=== PATIENT | female | born 1980 | race Hispanic/Latino ===

== ENCOUNTER → 2018-07-23 | Day surgery (SDC) | payer BC ==
[2018-07-17 12:15] LABS: BASOPHILS # (AUTO) 0.1 (0.0-0.1); BASOPHILS % 0.5 % (0.0-1.0); EOSINOPHILS # (AUTO) 0.3 (0.0-0.4); EOSINOPHILS % 2.2 % (0.0-6.0); HEMATOCRIT 41.3 % (34.2-44.1); HEMOGLOBIN 13.4 g/dL (12.0-16.0); LYMPHOCYTES # (AUTO) 4.1 (1.0-3.2); LYMPHOCYTES % 31.5 % (18.0-39.1); MEAN CORPUSCULAR HEMOGLOBIN 29.8 pg (28-32); MEAN CORPUSCULAR HGB CONC 32.4 g/dL (31-35); MEAN CORPUSCULAR VOLUME 91.8 fL (81-99); MONOCYTES % 7.6 % (4.4-11.3); NEUTROPHILS # (AUTO) 7.5 (2.1-6.9); NEUTROPHILS % 57.8 % (38.7-80.0); PLATELET COUNT 235 x10e3/uL (140-360)
[2018-07-17 12:31] LABS: ANION GAP 13.8 mmol/L (8-16); BLOOD UREA NITROGEN 15 mg/dL (7-26); BUN/CREATININE RATIO 21 (6-25); CALCIUM 9.4 mg/dL (8.4-10.2); CARBON DIOXIDE 26 mmol/L (22-29); CHLORIDE 105 mmol/L (98-107); CREATININE, SERUM 0.73 mg/dL (0.57-1.11); EST GLOMERULAR FILTRATION RATE > 60 ML/MIN (60-); GLUCOSE 76 mg/dL (74-118); POTASSIUM 3.8 mmol/L (3.5-5.1); SODIUM 141 mmol/L (136-145)
--- NOTE | 2018-07-17 12:40 | Diagnostic Imaging Report ---
Chest, PA and lateral dated 07/17/2018 at 1223 hours.. History: Preoperative for Lisfranc fracture repair Comparison: None available. Discussion: The cardiomediastinal silhouette and pulmonary vasculature are within normal limits. The lungs are clear without evidence of consolidation or effusion. There are clips in the left upper quadrant of the abdomen. Mild spurring of the thoracic spine is present. IMPRESSION: No cardiopulmonary abnormality. Signed by: Dr. Steve Alcantar DO on 07/17/2018 12:37 PM
[~2018-07-23] MED LIST: AZITHROMYCIN250 MG PO; BIOTIN PO; BUPIVACAINE HCL 0.5% INJ 30 ML VIAL INJ ONE; CARAFATE1 GM/10 ML PO; CEFAZOLIN SOD 2 GM/D5W 50ML 50 ML IV ONE; CLONAZEPAM0.5 MG PO; DEXAMETHASONE SOD PHOS INJ 4 MG/ML VIAL ONE; FENTANYL CITRATE/PF 100MCG/2 ML INJ ONE; GLUCOPHAGE500 MG; GLYCOPYRROLATE1 MG PO; IBUPROFEN400 MG PO; KETOROLAC TROMETHAMINE 30 MG/ML VIAL ONE; KLONOPIN0.5 MG; LIDOCAINE HCL 2% LOCAL INJ 5 ML SDV VIAL INJ ONE; MEPERIDINE HCL INJ 25 MG/ML VIAL ONE; MIDAZOLAM HCL 2 MG/2 ML VIAL ONE; NAPROXEN250 MG PO; NEOSTIGMINE 1 MG/ML 10ML VIAL ONE; NORCO 10-325 T1 EACH PO; NORCO 5-325 TA1 EACH PO; OMEPRAZOLE40 MG PO; ONCE DAILY1 EACH; ONDANSETRON HCL INJ 2 MG/ML VIAL ONE; PRENATAL COMPL1 EACH PO; PROMETHAZINE HC25 M1 TOP; PROPOFOL IV EMULSION 10 MG/ML 20 ML VIAL ONE; SEVOFLURANE INHAL SOLN 250 ML PEN BTL ONE; TYLENOL WITH C1 EACH PO; WELLBUTRIN SR150 MG
--- OUTSIDE RECORDS SUMMARY | 2018-07-23 06:18 | XMS REPORT | Clinical Summary ---
Author Author [facility] Organization [facility] Address Unknown Phone Unavailable Care Team Providers Care Hand Weaver Name Role Phone Geovany Campos MD PCP Allergies No Known Allergies Medications End Date Status Medication Sig Dispensed Refills Start Date Active glycopyrrolate (ROBINUL) Take 2 mg by 0 1 mg tablet mouth nightly. Active dexamethasone (DECADRON) Take 0.5 mg 0 0.5 MG tablet by mouth daily with breakfast. Active docusate sodium (COLACE) Take 100 mg 0 100 MG capsule by mouth 2 (two) times a day. Active ALPRAZolam (XANAX) 0.5 MG Take 0.5 mg 0 tablet by mouth nightly as needed for anxiety. Active buPROPion XL (WELLBUTRIN Take 300 mg 0 XL) 300 MG 24 hr tablet by mouth daily. Active levoFLOXacin (LEVAQUIN) Take 500 mg 0 500 MG tablet by mouth daily. Started 6-2-18 x10 days Active clotrimazole-betamethason Apply 0 e (LOTRISONE) 1-0.05 % topically cream daily. Active estradiol (ESTRACE) 1 MG Take 1 mg by 0 tablet mouth every 30 (thirty) days. Active clomiPHENE (CLOMID) 50 mg Take 50 mg by 0 tablet mouth every 30 (thirty) days. Pt takes with estradilol every month on the days of her period. Active codeine-guaifenesin Take 5 mL by 0 (GUAIFENESIN AC) 10-100 mouth mg/5 mL liquid nightly. 01/05/2018 Discontinued mupirocin (BACTROBAN) 2 % Apply 0 ointment topically 3 (three) times a day. 01/05/2018 Discontinued polyethylene glycol Take 17 g by 0 (MIRALAX) 17 gram packet mouth daily. 01/05/2018 Discontinued pantoprazole (PROTONIX) Take 40 mg by 0 40 MG EC tablet mouth daily. 01/10/2018 acetaminophen-codeine Take 1-2 15 tablet 0 (TYLENOL WITH CODEINE #3) tablets by 8 300-30 mg per tablet mouth every 6 (six) hours as needed for moderate pain for up to 5 days. 02/04/2018 ondansetron (ZOFRAN) 4 MG Take 1 tablet 16 tablet 0 tablet (4 mg total) 8 by mouth every 6 (six) hours for 30 days. Active Problems Not on file Encounters Care Team Description Date Type Specialty Jennifer Razo MD Cyst of right ovary (Primary Dx) 01/05/2018 Emergency Emergency Medicine after 07/22/2017 Social History Date Tobacco Use Types Packs/Day Years Used Current Some Day Smoker Alcohol Use Drinks/Week oz/Week Comments No Sex Assigned at Date Recorded Not on file Industry Job Start Date Occupation Not on file Not on file Not on file Travel End Travel History Travel Start No recent travel history available. Last Filed Vital Signs Time Taken Vital Sign Reading 01/05/2018 2:57 PM CDT Blood Pressure 112/62 01/05/2018 2:57 PM CDT Pulse 77 01/05/2018 9:48 AM CDT Temperature 36.8 C (98.2 F) 01/05/2018 2:57 PM CDT Respiratory Rate 18 01/05/2018 2:57 PM CDT Oxygen Saturation 99% - Inhaled Oxygen - Concentration 01/05/2018 9:48 AM CDT Weight 109 kg (239 lb 12.8 oz) 01/05/2018 9:48 AM CDT Height 167.6 cm (5' 6") 01/05/2018 9:48 AM CDT Body Mass Index 38.7 Plan of Treatment Health Maintenance Due Date Last Done Comments CERVICAL CANCER SCREENING 11/30/2000 INFLUENZA VACCINE 02/25/2018 Procedures Comments Procedure Name Priority Date/Time Associated Diagnosis TROPONIN Timed 01/05/2018 2:40 PM CDT US PELVIC TRANSVAGINAL STAT 01/05/2018 2:20 PM CDT US PELVIC TRANSABDOMINAL STAT 01/05/2018 2:[address] ABDOMEN PELVIS W STAT 01/05/2018 CONTRAST 12:05 PM CDT ECG ED PRELIMINARY Routine 01/05/2018 INTERPRETATION 10:30 AM CDT ECG 12-LEAD STAT 01/05/2018 10:24 AM CDT ZZESTIMATED GFR STAT 01/05/2018 10:11 AM CDT HCG QUALITATIVE, SERUM STAT 01/05/2018 SCREEN 10:11 AM CDT TROPONIN STAT 01/05/2018 10:11 AM CDT LIPASE LEVEL STAT 01/05/2018 10:11 AM CDT COMPREHENSIVE METABOLIC STAT 01/05/2018 PANEL 10:11 AM CDT HC COMPLETE BLD COUNT STAT 01/05/2018 W/AUTO DIFF 10:11 AM CDT after 07/22/2017 Results * Troponin (01/05/2018 2:40 PM CDT) Only the most recent of 2 results within the time period is included. Troponin <0.01 0.00 - 0.60 ng/mL [facility] OF Comment: PATHOLOGY AND 0.11 - 1.49 GENOMIC MEDICINE ng/mlMay indicate increased risk of acute coronary syndrome. >=1.5 ng/ml Consistent with acute myocardial infarction. The diagnostic value of a single normal or non-diagnostic result is questionable.Serial samples at 2-6 hour intervals are required to rule out acute myocardial injury. Specimen Plasma specimen Performing Organization Address City/State/Zipcode Phone Number [facility] DEPARTMENT OF [address] [place] [address] PATHOLOGY AND GENOMIC MEDICINE * US Pelvic Transabdominal (01/05/2018 2:20 PM CDT) Narrative Performed At EXAMINATION:US PELVIC TRANSABDOMINAL [facility] CLINICAL HISTORY:r ov cyst COMPARISON:None. TECHNIQUE:Transabdominal and endovaginal sonographic images of the pelvis were obtained. Grayscale, color Doppler, and spectral waveform analysis of the ovarian vessels was performed. FINDINGS: 1.The uterus measures 9.9 x 5.8 x 4.1 cm. The endometrial complex is 7 mm in thickness. 2.The right ovary measures 5.0 x 4.1 x 3.4 cm. Blood flow to the right ovary is patent. There is a complex septated cyst measuring 2.4 x 2.6 x 2.3 cm. The findings may relate to a corpus luteum cyst. Follow-up in 6 week interval time may be of benefit. 3.The left ovary measures 4.7 x 3.4 x 2.4 cm. Blood flow to left ovary is patent. 4.The bladder appears normal. 5.No free fluid is identified in the dependent portions of the pelvis. Impression: 1.Complex cyst in the right ovary measuring 2.4 x 2.6 x 2.3 cm. Follow-up in 6 week interval time may be of benefit. [id number] Procedure Note [facility], Radiology Results Incoming - 01/05/2018 2:39 PM CDT EXAMINATION: US PELVIC TRANSABDOMINAL CLINICAL HISTORY: r ov cyst COMPARISON: None. TECHNIQUE:Transabdominal and endovaginal sonographic images of the pelvis were obtained. Grayscale, color Doppler, and spectral waveform analysis of the ovarian vessels was performed. FINDINGS: 1. The uterus measures 9.9 x 5.8 x 4.1 cm. The endometrial complex is 7 mm in thickness. 2. The right ovary measures 5.0 x 4.1 x 3.4 cm. Blood flow to the right ovary is patent. There is a complex septated cyst measuring 2.4 x 2.6 x 2.3 cm. The findings may relate to a corpus luteum cyst. Follow-up in 6 week interval time may be of benefit. 3. The left ovary measures 4.7 x 3.4 x 2.4 cm. Blood flow to left ovary is patent. 4. The bladder appears normal. 5. No free fluid is identified in the dependent portions of the pelvis. Impression: 1. Complex cyst in the right ovary measuring 2.4 x 2.6 x 2.3 cm. Follow-up in 6 week interval time may be of benefit. [id number] Performing Organization Address City/State/Zipcode Phone Number [facility] [address] [place] [address] * US Pelvic Transvaginal (01/05/2018 2:20 PM CDT) Narrative Performed At EXAMINATION:[facility]AL [facility] CL[facility]ICAL [facility]:r ov cyst COMPARISON:None. TECHNIQUE:Transabdominal and endovaginal sonographic images of the pelvis were obtained. Grayscale, color Doppler, and spectral waveform analysis of the ovarian vessels was performed. FINDINGS: 1.The uterus measures 9.9 x 5.8 x 4.1 cm. The endometrial complex is 7 mm in thickness. 2.The right ovary measures 5.0 x 4.1 x 3.4 cm. Blood flow to the right ovary is patent. There is a complex septated cyst measuring 2.4 x 2.6 x 2.3 cm. The findings may relate to a corpus luteum cyst. Follow-up in 6 week interval time may be of benefit. 3.The left ovary measures 4.7 x 3.4 x 2.4 cm. Blood flow to left ovary is patent. 4.The bladder appears normal. 5.No free fluid is identified in the dependent portions of the pelvis. Impression: 1.Complex cyst in the right ovary measuring 2.4 x 2.6 x 2.3 cm. Follow-up in 6 week interval time may be of benefit. [id number] Procedure Note Interface, Radiology Results Incoming - 02/10/2018 4:05 PM CDT EXAMINATION: US PELVIC TRANSVAGINAL CLINICAL HISTORY: r ov cyst COMPARISON: None. TECHNIQUE:Transabdominal and endovaginal sonographic images of the pelvis were obtained. Grayscale, color Doppler, and spectral waveform analysis of the ovarian vessels was performed. FINDINGS: 1. The uterus measures 9.9 x 5.8 x 4.1 cm. The endometrial complex is 7 mm in thickness. 2. The right ovary measures 5.0 x 4.1 x 3.4 cm. Blood flow to the right ovary is patent. There is a complex septated cyst measuring 2.4 x 2.6 x 2.3 cm. The findings may relate to a corpus luteum cyst. Follow-up in 6 week interval time may be of benefit. 3. The left ovary measures 4.7 x 3.4 x 2.4 cm. Blood flow to left ovary is patent. 4. The bladder appears normal. 5. No free fluid is identified in the dependent portions of the pelvis. Impression: 1. Complex cyst in the right ovary measuring 2.4 x 2.6 x 2.3 cm. Follow-up in 6 week interval time may be of benefit. [id number] Performing Organization Address City/State/Zipcode Phone Number [facility] [address] [place] [address] * CT Abdomen Pelvis W Contrast (01/05/2018 12:05 PM CDT) Narrative Performed At EXAMINATION:CT ABDOMEN PELVIS W CONTRAST [facility] CLINICAL HISTORY:diffuse abd pain TECHNIQUE: Multiple axial images of the abdomen and pelvis were obtained following intravenous administration of iodinated contrast. Sagittal and coronal computerized reformatted images were also obtained. Approximately 100 cc of Omnipaque [address] scan performed using radiation dose reduction techniques. Technical factors are evaluated and adjusted to ensure appropriate moderation of exposure. Automated dose management technology is applied to adjust the radiation dose to minimize expose whileachieving a diagnostic quality image. COMPARISON:None. FINDINGS: Lung bases: . The visualized portion of the heart and thoracic aorta are unremarkable. Liver: There is no intrahepatic biliary dilatation or mass. The liver is normal in attenuation, contour and size. Gallbladder: Surgically absent.. Pancreas: The pancreas is normal in caliber and attenuation. No inflammatory process. The pancreatic duct is within normal limits. Spleen: The spleen is normal in appearance.. Kidneys and ureters: The kidneys function symmetrically. There is no enhancing renal lesion. No hydronephrosis or renal stone. The ureters are normal in course and caliber. Adrenal glands: Unremarkable. 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 There is no evidence of bowel obstruction.. The colon is unremarkable. No bowel wall thickening is identified. There is no acute inflammatory process. The appendix is normal. No right lower quadrant inflammation is seen. Fluid: None. Pelvis: Bladder: The urinary bladder is unremarkable. Genitalia: Probable approximately 2 cm right ovarian cyst is seen. Prominence of both ovaries also noted, probably representing follicular changes. Limited arising of the uterus is unremarkable.. Bones: Unremarkable. Retroperitoneum/intraperitoneum: No retroperitoneal or mesenteric pathologic lymphadenopathy is seen. Vasculature: No evidence of aortic aneurysm or dissection.The mesenteric vessels and visceral vessel are patent. Abdominal wall: Unremarkable. IMPRESSION: No CT evidence of appendicitis, colitis or bowel obstruction. Probable approximately 2 cm right ovarian cyst and bilateral ovarian follicular changes. Recommend clinical correlation. Pelvic ultrasoundwould be of use for further evaluation if clinical indicated. Unremarkable exam otherwise. [id number] Procedure Note Interface, Radiology Results Incoming - 01/05/2018 12:26 PM CDT EXAMINATION: CT ABDOMEN PELVIS W CONTRAST CLINICAL HISTORY: diffuse abd pain TECHNIQUE: Multiple axial images of the abdomen and pelvis were obtained following intravenous administration of iodinated contrast. Sagittal and coronal computerized reformatted images were also obtained. Approximately 100 cc of Omnipaque [address] scan performed using radiation dose reduction techniques. Technical factors are evaluated and adjusted to ensure appropriate moderation of exposure. Automated dose management technology is applied to adjust the radiation dose to minimize expose while achieving a diagnostic quality image. COMPARISON: None. FINDINGS: Lung bases: . The visualized portion of the heart and thoracic aorta are unremarkable. Liver: There is no intrahepatic biliary dilatation or mass. The liver is normal in attenuation, contour and size. Gallbladder: Surgically absent.. Pancreas: The pancreas is normal in caliber and attenuation. No inflammatory process. The pancreatic duct is within normal limits. Spleen: The spleen is normal in appearance.. Kidneys and ureters: The kidneys function symmetrically. There is no enhancing renal lesion. No hydronephrosis or renal stone. The ureters are normal in course and caliber. Adrenal glands: Unremarkable. 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 There is no evidence of bowel obstruction.. The colon is unremarkable. No bowel wall thickening is identified. There is no acute inflammatory process. The appendix is normal. No right lower quadrant inflammation is seen. Fluid: None. Pelvis: Bladder: The urinary bladder is unremarkable. Genitalia: Probable approximately 2 cm right ovarian cyst is seen. Prominence of both ovaries also noted, probably representing follicular changes. Limited arising of the uterus is unremarkable.. Bones: Unremarkable. Retroperitoneum/intraperitoneum: No retroperitoneal or mesenteric pathologic lymphadenopathy is seen. Vasculature: No evidence of aortic aneurysm or dissection. The mesenteric vessels and visceral vessel are patent. Abdominal wall: Unremarkable. IMPRESSION: No CT evidence of appendicitis, colitis or bowel obstruction. Probable approximately 2 cm right ovarian cyst and bilateral ovarian follicular changes. Recommend clinical correlation. Pelvic ultrasound would be of use for further evaluation if clinical indicated. Unremarkable exam otherwise. [id number] Performing Organization Address City/State/Zipcode Phone Number [facility] [address] [place] [address] * ECG ED Preliminary Interpretation - NOT AN ORDER (01/05/2018 10:30 AM CDT) Narrative Performed At Jennifer Razo MD 01/05/2018 10:30 AM ECG ED Preliminary Interpretation - Not an Order Performed by: JENNIFER RAZO Authorized by: JENNIFER RAZO ECG reviewed by ED Physician in the absence of a survey supervisor: yes Previous ECG: Previous ECG:Compared to current Interpretation: Interpretation: normal Rate: ECG rate:95 ECG rate assessment: normal Rhythm: Rhythm: sinus rhythm Ectopy: Ectopy: none QRS: QRS axis:Normal Conduction: Conduction: normal ST segments: ST segments:Normal T waves: T waves: normal * ECG 12 lead (01/05/2018 10:24 AM CDT) Ventricular rate 95 [facility] Atrial rate 95 [facility] DC interval 150 [facility] QRSD interval 82 [facility] QT interval 348 [facility] QTC interval 437 [facility] P axis 1 59 [facility] QRS axis 1 35 [facility] T wave axis 38 [facility] EKG impression Normal sinus rhythm-Normal [facility] ECG-No previous ECGs available- Performing Organization Address [facility] Corporation[facility] Urologicalct Phone Number [facility] [address] [place] [address] * Estimated GFR (01/05/2018 10:11 AM CDT) GFR Non Af Amer 80 mL/min/1.73 m2 [facility] DE[facility] OF PATHOLOGY AND GENOMIC MEDICINE GFR Af Amer >90 mL/min/1.73 m2 [facility] OF Comment: PATHOLOGY AND Chronic kidney disease: <60 GENOMIC MEDICINE mL/min/1.73m2 Kidney failure: <15 mL/min/1.73m2 The estimated GFR is calculated from the IDMS-traceable Modification of Diet in Renal Disease Equation. The accuracy of the calculation is poor when the creatinine is normal. Calculated values >90 mL/min/1.73m2 are not reported. This equation has not been validated in children (<18 years), women, the elderly (>70 years), or ethnic groups other than Caucasians and Americans. Specimen Plasma specimen Performing Organization Address City/[facility] Corporationcoct Phone Number [facility] [address] [place] [address] PATHOLOGY AND GENOMIC MEDICINE * CBC with platelet and differential (01/05/2018 10:11 AM CDT) WBC 20.4 (H) 4.2 - 11.0 k/uL [facility] DE[facility] OF PATHOLOGY AND GENOMIC MEDICINE RBC 4.72 4.04 - 5.86 m/uL [facility] DE[facility] OF PATHOLOGY AND GENOMIC MEDICINE HGB 13.4 11.5 - 15.3 g/dL [facility] OF PATHOLOGY AND GENOMIC MEDICINE HCT 40.9 34.0 - 45.0 % [facility] DE[facility]MENT OF PATHOLOGY AND GENOMIC MEDICINE MCV 86.7 80.0 - 98.0 fL [facility] DE[facility] OF PATHOLOGY AND GENOMIC MEDICINE MCH 28.4 27.0 - 34.0 pg [facility] DE[facility]MENT OF PATHOLOGY AND GENOMIC MEDICINE MCHC 32.8 31.5 - 36.5 g/dL [facility] DE[facility]MENT OF PATHOLOGY AND GENOMIC MEDICINE RDW - SD 42.0 37.0 - 51.0 fL [facility] DE[facility]MENT OF PATHOLOGY AND GENOMIC MEDICINE MPV 11.2 (H) 7.4 - 10.4 fL [facility] DE[facility] OF PATHOLOGY AND GENOMIC MEDICINE Platelet count 290 150 - 400 k/uL [facility] DE[facility] OF PATHOLOGY AND GENOMIC MEDICINE Nucleated RBC 0.00 /100 WBC [facility] DE[facility]MENT OF PATHOLOGY AND GENOMIC MEDICINE Neutrophils 74.5 (H) 36.0 - 66.0 % [facility] DE[facility]MENT OF PATHOLOGY AND GENOMIC MEDICINE Lymphocytes 16.0 (L) 24.0 - 44.0 % [facility] DE[facility] OF PATHOLOGY AND GENOMIC MEDICINE Monocytes 6.6 (H) 0.0 - 6.0 % [facility] DE[facility] OF PATHOLOGY AND GENOMIC MEDICINE Eosinophils 2.0 0.0 - 6.0 % [facility] DE[facility]MENT OF PATHOLOGY AND GENOMIC MEDICINE Basophils 0.4 0.0 - 1.2 % [facility] DE[facility]MENT OF PATHOLOGY AND GENOMIC MEDICINE Immature granulocytes 0.5 0.0 - 1.0 % [facility] DE[facility]MENT OF PATHOLOGY AND GENOMIC MEDICINE Specimen Blood Performing Organization Address City/State/Zipcode Phone Number [place] [address] [place] [address] PATHOLOGY AND GENOMIC MEDICINE * hCG qualitative, serum screen (01/05/2018 10:11 AM CDT) hCG qualitative, serum Negative [facility] DE[facility] OF Comment: PATHOLOGY AND The manufacturers stated GENOMIC MEDICINE sensitivity of HcG test for serum is >/=10 mIU/ml and urine is >/=20mIU/ml. Specimen Blood Performing Organization Address City/[facility] Corporationcode Phone Number [place] [address] [place] [address] PATHOLOGY AND GENOMIC [facility] * Lipase level (01/05/2018 10:11 AM CDT) Lipase 92 65 - 230 U/L [facility] DE[facility]MENT OF PATHOLOGY AND GENOMIC MEDICINE Specimen Plasma specimen Performing Organization Address City/[facility] Corporationcode Phone Number [place] [address] [place] [address] PATHOLOGY AND [facility] * Comprehensive metabolic panel (01/05/2018 10:11 AM CDT) Sodium 141 135 - 150 mEq/L [facility] DE[facility] OF PATHOLOGY AND GENOMIC MEDICINE Potassium 3.5 3.5 - 5.0 mEq/L [facility] DE[facility] OF PATHOLOGY AND GENOMIC MEDICINE Chloride 107 100 - 109 mEq/L [facility] DE[facility]MENT OF PATHOLOGY AND GENOMIC MEDICINE CO2 22 (L) 24 - 32 mmol/L [facility] DE[facility] OF PATHOLOGY AND GENOMIC MEDICINE Anion gap 12@ANIO 7 - 15 mEq/L [facility] DE[facility] OF PATHOLOGY AND GENOMIC MEDICINE BUN 11 7 - 18 mg/dL [facility] DE[facility] OF PATHOLOGY AND GENOMIC MEDICINE Creatinine 0.8 0.8 - 1.5 mg/dL [facility] OF PATHOLOGY AND GENOMIC MEDICINE Glucose 91 65 - 100 mg/dL [facility] OF PATHOLOGY AND GENOMIC MEDICINE Calcium 9.5 8.6 - 10.7 mg/dL [facility] DE[facility] OF PATHOLOGY AND GENOMIC MEDICINE Protein 7.7 6.3 - 8.2 g/dL [facility] OF PATHOLOGY AND GENOMIC MEDICINE Albumin 3.1 (L) 3.2 - 5.0 g/dL [facility] DE[facility] OF PATHOLOGY AND GENOMIC MEDICINE A/G ratio 0.7 0.7 - 3.8 [facility] OF PATHOLOGY AND GENOMIC MEDICINE Alkaline phosphatase 223 (H) 30 - 120 U/L [facility] DE[facility] OF PATHOLOGY AND GENOMIC MEDICINE AST 126 (H) 15 - 37 U/L [facility] DE[facility] OF PATHOLOGY AND GENOMIC MEDICINE ALT 107 (H) 30 - 65 U/L [facility] DE[facility] OF PATHOLOGY AND GENOMIC MEDICINE Total bilirubin 0.6 0.2 - 1.2 mg/dL [facility] OF PATHOLOGY AND GENOMIC MEDICINE Specimen Plasma specimen Performing Organization Address City/[facility] Corporationcode Phone Number [place] [address] [place] [address] PATHOLOGY AND GENOMIC MEDICINE after 07/22/2017 Insurance Payer Benefit Subscriber ID Type Phone Address Plan / Group BCBS BCBS xxxxxxxxxxxx PPO CHOICE PPO/PJ PERKINS PPO Advance Directives Patient has advance care planning documents on file. For more information, naima cash contact: Max Davis [address] [place] [address]
--- OUTSIDE RECORDS SUMMARY | 2018-07-23 06:19 | XMS REPORT ---
Author Author [facility] Address Unknown Phone Unavailable Care Team Providers Care Medical Records Field Technician Name Role Phone LORI GERARD Unavailable Unavailable Problems This patient has no known problems. Allergies, Adverse Reactions, Alerts This patient has no known allergies or adverse reactions. Medications This patient has no known medications. Results Test Description Test Time Test Comments Text Results Atomic Results Result Comments CHEST 2 VIEWS 2018-07-17 12:35:00 [facility] [address] [address] Patient Name: DEJAN DOBBINS MR #: [id number] : 1980 Age/Sex: 37/F Req #: [id number] Adm Physician: Ordered by: LORI GERARD DPM Report #: [id number] Location: OR Room/Bed: Procedure: [id number] DX/CHEST 2 VIEWS Exam Date: 07/17/18 Exam Time: 1223 REPORT STATUS: Signed Chest, PA and lateral dated 07/17/2018 at 1223 hours.. H istory: Preoperative for Lisfranc fracture repair Comparison: None available. Discussion: The cardiomediastinal silhouette and pulmonary vasculature are within normal limits. The lungs are clear without evidence of consolidation or effusion. There are clips in the left upper quadrant of the abdomen. Mild spurring of the thoracic spine is present. IMPRESSION: No cardiopulmonary abnormality. Signed by: Dr. Muna Alcantar DO on 07/17/2018 12:37 PM Dictated By: MUNA ALCANTAR DO 1237 Transcribed By: ACE on 07/17/18 1237 COPY TO: LORI GERARD DPM
[2018-07-23 06:59] LABS: BASOPHILS # (AUTO) 0.1 (0.0-0.1); BASOPHILS % 0.6 % (0.0-1.0); EOSINOPHILS # (AUTO) 0.2 (0.0-0.4); HEMATOCRIT 39.5 % (34.2-44.1); HEMOGLOBIN 12.9 g/dL (12.0-16.0); LYMPHOCYTES # (AUTO) 3.3 (1.0-3.2); LYMPHOCYTES % 31.9 % (18.0-39.1); MEAN CORPUSCULAR HEMOGLOBIN 29.6 pg (28-32); MEAN CORPUSCULAR HGB CONC 32.7 g/dL (31-35); MEAN CORPUSCULAR VOLUME 90.6 fL (81-99); MONOCYTES # (AUTO) 0.9 (0.2-0.8); MONOCYTES % 8.2 % (4.4-11.3); NEUTROPHILS # (AUTO) 5.9 (2.1-6.9); PLATELET COUNT 214 x10e3/uL (140-360); RED BLOOD COUNT 4.36 x10e6/uL (3.6-5.1); RED CELL DISTRIBUTION WIDTH 12.8 % (11.7-14.4)
--- NOTE | 2018-07-23 08:10 | NUR ---
SPIRITUAL CARE - Pre-Surgery Assessment: Pt in bed. Pt's step-mother at bedside. Pt reported supportive attention from family and friends. Intervention: I provided pastoral presence, hospitality, sympathetic listening, and prayer. I acquainted pt with availability of psychological operations officer while hospitalized. Outcome: Pt expressed appreciation for visit. No need for follow up indicated at this time. [facility] O: [phone] Pager: [phone] ([phone] number calling from)
[2018-07-23 12:24] VITALS: BP 5/6
--- NOTE | 2018-07-23 14:25 | Operative Report ---
DATE OF PROCEDURE: July 23, 2018 PREOPERATIVE DIAGNOSIS: Lisfranc's fracture with subluxation of tarsometatarsal joints, left foot. POSTOPERATIVE DIAGNOSIS: Lisfranc's fracture with subluxation of tarsometatarsal joints, left foot. TITLE OF OPERATION: Open reduction with internal fixation of Lisfranc's joint, right foot with screw and plate fixation. ANESTHESIA: General endotracheal. HEMOSTASIS: Left thigh tourniquet at 350 mmHg. PROCEDURE IN DETAIL: The patient was taken to the operating room in a mildly sedated state, and placed upon the operating table in the supine position. Following induction of general anesthetic, the right lower extremity was elevated to 60 degrees to exsanguinate before inflating the pneumatic thigh tourniquet to 350 mmHg to obtain good hemostasis. The right lower extremity was placed upon the operating table prior to performing the following procedure. PROCEDURE #1: Open reduction internal fixation of the Lisfranc's fracture of the left foot. A linear longitudinal incision was made overlying the dorsal aspect of the tarsometatarsal joint on the right foot at the base of the 1st and 2nd metatarsals extending proximally to the metatarsal cuneiform joint and distally to Lisfranc's ligament between the base of the 2nd metatarsal and the medial cuneiform. The incision was deepened via sharp and blunt dissection down to the level of bone and capsular insertion. A [place] elevator was used to remove the capsular adhesions. All superficial bleeders were electrocoagulated. All deep bleeders were protected. Nerves were identified and retracted from harm's way. The Lisfranc's ligament was identified, and there were fractures of the 1st metatarsal and 2nd metatarsal cuneiform joints readily evident. All necrotic nonhealing bone was excised with a combination of rongeur and curette. A stabilizing K-wire was inserted with compression medial to lateral to the medial cuneiform and into the base of the 2nd metatarsal. A second K-wire was advanced slightly more proximally and oriented in an oblique fashion to fuse the medial cuneiform to the 2nd metatarsal base. This having been accomplished, the subluxation was reduced and the screw fixation was accomplished with a lag screw technique utilizing a 3 cannulated screw. This having been accomplished, the area was irrigated with copious amounts of sterile saline solution. The K-wire through the screw was removed. The 2nd K-wire was left in place as skin retraction and also for further stabilization as the U-plate was installed over the complex of the Lisfranc's dislocation apparatus. The medial and the cuneiform and their articulation with the 1st and 2nd metatarsals, as well as the medial to lateral articulation of the 2nd metatarsal and the medial cuneiform base. This having been stabilized with K-wire and appropriate compression, the U-plate intended for Lisfranc's repair was installed with locking screws both dorsally and extending into the cuneiforms and metatarsals. This having been accomplished, after appropriate tacking and radiographic reviewing, the area was irrigated with copious amounts of sterile saline solution. Temporary retaining K-wires were removed. The area was noted to be stable. Deep closure and capsular repair was 3-0 Vicryl. Subcutaneous closure was 4-0 Vicryl and skin closure was 4-0 nylon. The areas of surgery were then blocked with 0.5 Marcaine and Decadron [place]. The area of fusion as well as the dorsal incision site and area of nerve irritation was then injected with human tissue allograft to facilitate healing and reduce postoperative complications. This area was then dressed with the appropriate mildly compressive dressings, including a posterior splint. Patient tolerated both anesthetic and procedure very well. Job#: [id number] HIRA
== END | disposition home or self-care (01) ==
LOC: OR 06:15
PROVIDERS: ATTEND Podiatrist Foot Surgery
DX: S93.325A Dislocation of tarsometatarsal joint of left foot, initial encounter (principal); F41.8 Other specified anxiety disorders; E28.2 Polycystic ovarian syndrome; F41.9 Anxiety disorder, unspecified; F17.210 Nicotine dependence, cigarettes, uncomplicated; Z01.810 Encounter for preprocedural cardiovascular examination; Z01.818 Encounter for other preprocedural examination; Z79.84 Long term (current) use of oral hypoglycemic drugs
CPT/HCPCS: 36415; 71046; 76001; 80048; 81025; 85025; 93005; C1713; C1762; J0690; J1100; J1885; J2001; J2175; J2250; J2405; J2710